=== PATIENT | female | born 1955 | race Caucasian/White ===

== ENCOUNTER → 2017-06-18 | Outpatient (CLI) | payer BC ==
[~2017-06-18] MED LIST: ARMOUR THYROID120 MG PO; SYNTHROID0.1 MG/TAB PO
== END ==
LOC: MC.RAD 06-08 09:20
DX: Z12.31 Encounter for screening mammogram for malignant neoplasm of breast (principal)

== ENCOUNTER 2018-03-22 03:20 | Emergency (ER) | payer BC ==
[~2018-03-22] VITALS: Ht 172.7 cm; Wt 62.3 kg
[2018-03-22 03:24] VITALS: TEMP 98.4
[2018-03-22 03:59] LABS: BASO % 0.2 % (0.0-2.0); EOS # 0.2 (0.0-0.7); EOS % 0.9 % (0-4.0); GRAN # 13.3 (1.4-6.5); GRAN % 79.8 % (42.2-75.2); HEMOGLOBIN 13.2 g/dl (12.5-16.0); LYMPH # 1.8 (1.2-3.4); LYMPH % 10.9 % (20.0-51.0); MEAN CELL VOLUME 87 fl (80.0-100.0); MEAN CORPUSCULAR HEMOGLOBIN 30 pg (27.0-31.0); MEAN CORPUSCULAR HGB CONC 35 g/dl (33.0-37.0); MEAN PLATELET VOLUME 8.8 fl (7.4-10.4); MONO # 1.3 (0.1-0.6); MONO % 7.8 % (1.7-9.3); PLATELET COUNT 325 K/mm3 (130-400); RED BLOOD COUNT 4.36 M/mm3 (4.10-5.30); REDCELL DISTRIBUTION WIDTH-CV 12.1 % (11.5-14.5)
[2018-03-22 04:05] LABS: INR 1.1 (0.8-3.0)
[2018-03-22 04:09] LABS: ALANINE AMINOTRANSFERASE 38 U/L (9-52); ALBUMIN 4.3 gm/dL (3.5-5.0); ALKALINE PHOSPHATASE 82 U/L (50-136); ANION GAP 10 mmol/L (7-16); AST,SGOT 41 U/L (15-37); BILIRUBIN,TOTAL 1.1 mg/dL (0.0-1.0); BLOOD UREA NITROGEN 14 mg/dL (7-17); CALCIUM 9.3 mg/dL (8.4-10.2); CARBON DIOXIDE 25 mmol/L (22-30); CHLORIDE 99 mmol/L (98-107); CREATININE, serum 0.71 mg/dL (0.52-1.25); GLUCOSE 139 mg/dL (74-106); POTASSIUM 3.8 mmol/L (3.4-5.0); SODIUM 134 mmol/L (137-145); TOTAL PROTEIN 7.7 gm/dL (6.4-8.2)
[2018-03-22 04:20] LABS: TROPONIN-I < 0.012 ng/mL (0.000-0.034)
[2018-03-22 05:48] LABS: COLLECTION METHOD CLEAN CATCH
[2018-03-22 05:59] LABS: PH 6 (5-8); SQUAMOUS EPITHELIAL 0-2 /hpf; URINE APPEARANCE Clear; URINE BACTERIA None Seen /hpf; URINE BILIRUBIN Negative (NEGATIVE); URINE BLOOD 2+ (NEGATIVE); URINE COLOR Straw; URINE GLUCOSE Negative (NEGATIVE); URINE KETONE Negative (NEGATIVE); URINE LEUKOCYTE ESTERASE Trace (NEGATIVE); URINE NITRATE Negative (NEGATIVE); URINE PROTEIN(semi-quant) Negative (NEGATIVE); URINE UROBILINOGEN Negative (NEGATIVE)
[2018-03-22] MEDS ORDERED: ZITHROMAX500 M2 PO (06:20)
[2018-03-22 06:37] VITALS: BP 111/56; PULSE 68
== END 2018-03-22 06:39 | disposition home or self-care (01) ==
LOC: COL.ER 03:20
PROVIDERS: Emergency Medicine
DX: J18.1 Lobar pneumonia, unspecified organism (principal); E03.9 Hypothyroidism, unspecified
CPT/HCPCS: J0696; J2405; J2765; J7030; Q9967

== ENCOUNTER → 2018-03-25 | Outpatient (CLI) | payer BC ==
[~2018-03-25] MED LIST changes: +ZITHROMAX500 M2 PO
== END ==
LOC: COL.LAB 10:55
DX: R19.7 Diarrhea, unspecified (principal)

== ENCOUNTER → 2018-06-20 | Outpatient (CLI) | payer MEDICARE, OTHER | LOC: MC.RAD 09:58 | DX: Z12.31 Encounter for screening mammogram for malignant neoplasm of breast (principal) ==

== ENCOUNTER → 2019-07-11 | Outpatient (CLI) | payer MEDICARE, OTHER ==
[~2019-07-11] MED LIST changes: +GLUCOSAMINE & C1 TAB PO; +VITAMIN D 1001000 IU PO
== END ==
LOC: MC.RAD 13:27
DX: Z12.31 Encounter for screening mammogram for malignant neoplasm of breast (principal)

== ENCOUNTER → 2020-08-28 | Outpatient (CLI) | payer MEDICARE, OTHER | LOC: COL.VAS 12:46 | DX: M79.662 Pain in left lower leg (principal); Z96.652 Presence of left artificial knee joint ==

== ENCOUNTER → 2021-01-29 | Outpatient (CLI) | payer MEDICARE, OTHER | LOC: MC.RAD 12:45 | DX: Z12.31 Encounter for screening mammogram for malignant neoplasm of breast (principal) ==

== ENCOUNTER → 2022-01-30 | Outpatient (CLI) | payer MEDICARE, OTHER | LOC: MC.RAD 13:49 | DX: Z12.31 Encounter for screening mammogram for malignant neoplasm of breast (principal) ==

== ENCOUNTER 2022-08-18 13:13 | Emergency (ER) | payer MEDICARE, OTHER ==
[~2022-08-18] VITALS: Ht 170.2 cm; Wt 62.7 kg
[2022-08-18 13:24] VITALS: TEMP 98.1
[2022-08-18 16:02] VITALS: BP 136/80; PULSE 78
== END 2022-08-18 16:05 | disposition home or self-care (01) ==
LOC: COL.ER 13:13
DX: G97.1 Other reaction to spinal and lumbar puncture (principal); Z96.642 Presence of left artificial hip joint

== ENCOUNTER → 2024-03-14 | Outpatient (CLI) | payer MEDICARE | LOC: MC.RAD 07:25 | DX: Z12.31 Encounter for screening mammogram for malignant neoplasm of breast (principal) ==